=== PATIENT | male | born 1975 | race American Indian/Alaskan Native ===

== ENCOUNTER 2021-07-13 15:36 | Emergency (ER) | payer SELFPAY ==
--- NOTE | 2021-07-13 19:53 | Emergency Department Report ---
ED Lower Extremity HPI - General Chief Complaint: Extremity Injury, Lower Stated Complaint: KNEE PAIN Time Seen by Provider: 07/13/21 19:20 Source: patient Mode of arrival: Ambulatory Limitations: No Limitations - History of Present Illness Initial Comments: 45-year-old male presents to the ED complaining left knee pain . Patient states that while working yesterday lifting boxes from shelf that some boxes fell down on his left knee. Patient states that pain is currently a 5 out of 10. No obvious edema noted to the left knee .Patient able to fully extend knee but states that there is pain. Patient able to bear weight on knee. No obvious deformity noted. No distracting injury noted. Patient is alert and oriented x3. No acute distress noted. No ill appearance noted. MD Complaint: knee injury Onset/Timin -: days(s) Injury: Knee: Left Place: work Severity scale (0 -10): 4 Improves With: nothing Worsens With: movement Context: direct blow Associated Symptoms: ambulatory - Related Data Previous Rx's Medication Instructions Recorded Last Taken Type Ibuprofen [Motrin] 800 mg PO Q8HR PRN 15 Days #30 07/13/21 Unknown Rx tablet Allergies Allergy/AdvReac Type Severity Reaction Status Date / Time No Known Allergies Allergy Unverified 07/13/21 16:03 ED Review of Systems ROS: Stated complaint: KNEE PAIN Other details as noted in HPI Constitutional: denies: chills, fever Eyes: denies: eye pain, eye discharge, vision change ENT: denies: ear pain, throat pain Respiratory: denies: cough, shortness of breath, wheezing Cardiovascular: denies: chest pain, palpitations Endocrine: no symptoms reported Gastrointestinal: denies: abdominal pain, nausea, diarrhea Genitourinary: denies: urgency, dysuria Musculoskeletal: arthralgia. denies: back pain, joint swelling Skin: denies: rash, lesions Neurological: denies: headache, weakness, paresthesias Psychiatric: denies: anxiety, depression Hematological/Lymphatic: denies: easy bleeding, easy bruising ED Past Medical Hx - Medications Home Medications: Home Medications Medication Instructions Recorded Confirmed Last Taken Type Ibuprofen [Motrin] 800 mg PO Q8HR PRN 15 Days #30 07/13/21 Unknown Rx tablet ED Physical Exam - General Limitations: No Limitations General appearance: alert, in no apparent distress - Head Head exam: Present: atraumatic, normocephalic - Eye Eye exam: Present: normal appearance - ENT ENT exam: Present: mucous membranes moist - Neck Neck exam: Present: normal inspection - Respiratory Respiratory exam: Present: normal lung sounds bilaterally. Absent: respiratory distress - Cardiovascular Cardiovascular Exam: Present: regular rate, normal rhythm. Absent: systolic murmur, diastolic murmur, rubs, gallop - GI/Abdominal GI/Abdominal exam: Present: soft, normal bowel sounds - Rectal Rectal exam: Present: deferred - Extremities Exam Extremities exam: Present: normal inspection - Back Exam Back exam: Present: normal inspection - Neurological Exam Neurological exam: Present: alert, oriented X3 - Psychiatric Psychiatric exam: Present: normal affect, normal mood - Skin Skin exam: Present: warm, dry, intact, normal color. Absent: rash ED Course Vital Signs 07/13/21 16:03 Temperature 98.3 F Pulse Rate 64 Respiratory 18 Rate Blood Pressure 112/70 [Right] O2 Sat by Pulse 100 Oximetry ED Lower Extremity MDM - Radiology Data [facility] [address] [place] [address] XRay Report Signed Patient: SUZAN AMARO MR#: [id number] : 1975 Acct:[id number] Age/Sex: 45 / M ADM Date: 07/13/21 Loc: ED Attending Dr: Ordering Physician: ANJEL BRICE Date of Service: 07/13/21 Procedure(s): XR knee 3V LT Accession Number(s): [id number] cc: ANJEL BRICE Fluoro Time In Minutes: LEFT KNEE 3 VIEW(S) INDICATION / CLINICAL INFORMATION: knee pain COMPARISON: None available. FINDINGS: BONES / JOINT(S): No acute fracture or subluxation. No significant arthritis. SOFT TISSUES: No significant abnormality. ADDITIONAL FINDINGS: None. IMPRESSION: 1. No acute findings. Signer Name: Calvin Price MD Signed: 07/13/2021 8:11 PM Workstation Name: [id number] Transcribed By: TL Dictated By: Calvin Price MD Electronically Authenticated By: Calvin Price MD Signed Date/Time: 07/13/212010 DD/ 10 TD/TT: Print Cancel - Medical Decision Making 45-year-old male presents to the ED complaining left knee pain . Patient states that while working yesterday lifting boxes from shelf that some boxes fell down on his left knee. Patient states that pain is currently a 5 out of 10. No obvious edema noted to the left knee .Patient able to fully extend knee but states that there is pain. Patient able to bear weight on knee. No obvious deformity noted. No distracting injury noted. Patient is alert and oriented x3. No acute distress noted. No ill appearance noted. Physical examination unremarkable. Left view 3 x-ray show no acute finding . Patient to follow-up with orthopedic Rechecked the patient is resting quietly quietly and comfortable and feeling better. I discussed the results of diagnostic study, my clinical impression and the plan for further treatment with the patient. Patient agrees with plan and discharge at this present time. All question addressed. I have given the patient instruction regarding a diagnosis ,expectation ,follow- up and return precaution. I explained to the patient that emergent condition may arise and to return to the ED for new worsen and any new persisting condition. I have explained the importance of following up with the primary care physician or referral physician listed below has instructed. The patient verbalized understanding of discharge instruction. Critical care attestation.: If time is entered above; I have spent that time in minutes in the direct care of this critically ill patient, excluding procedure time. ED Disposition Clinical Impression: Left knee pain Qualifiers: Chronicity: acute Qualified Code(s): M25.562 - Pain in left knee Disposition: 01 HOME / SELF CARE / HOMELESS Is pt being admited?: No Does the pt Need Aspirin: No Condition: Stable Instructions: Acute Knee Pain, Adult Additional Instructions: Follow-up with orthopedic has your job refer you Take pain medication as prescribed Return to the ED for any worsening symptom Prescriptions: Ibuprofen [Motrin] 800 mg PO Q8HR PRN 15 Days #30 tablet PRN Reason: Pain, Moderate (4-6) Referrals: MARCOS DE LA CRUZ MD [Primary Care Provider] - 3-5 Days ARNOLD THAKKAR MD [Staff Physician] - 3-5 Days Forms: Work/School Release Form(ED)
--- NOTE | 2021-07-13 20:16 | XRay Report ---
LEFT KNEE 3 VIEW(S) INDICATION / CLINICAL INFORMATION: knee pain COMPARISON: None available. FINDINGS: BONES / JOINT(S): No acute fracture or subluxation. No significant arthritis. SOFT TISSUES: No significant abnormality. ADDITIONAL FINDINGS: None. IMPRESSION: 1. No acute findings. Signer Name: Calvin Price MD Signed: 07/13/2021 8:11 PM Workstation Name: [id number]
[2021-07-13 20:48] VITALS: BP 118/77
== END 2021-07-13 20:48 | disposition home or self-care (01) ==
LOC: ED 15:36
DX: M25.562 Pain in left knee (principal); W18.39XA Other fall on same level, initial encounter; Y93.89 Activity, other specified; Y92.89 Other specified places as the place of occurrence of the external cause; Y99.8 Other external cause status
CPT/HCPCS: 99283